=== PATIENT | female | born 1960 | race Caucasian/White ===

== ENCOUNTER 2018-10-08 10:52 | Emergency (ER) | payer BC ==
[2018-10-08 11:08] VITALS: BP 138/82
--- NOTE | 2018-10-08 11:31 | UC ---
Back Pain HPI - HPI Summary HPI Summary: caught herself off balance 4 eves ago, did not fall, started feeling low back pain few hours later. Has had low back pain in past and received steroid inj. takes tramadol qd and Lyrica, meloxicam, still has spasm. did get some relief while lying on heat pad pain does not radiate, no loss bowel/bladder control - History of Current Complaint Chief Complaint: UCBackPain Stated Complaint: BACK PAIN Time Seen by Provider: 10/08/18 11:18 Hx Obtained From: Patient Hx Last Menstrual Period: 10 years ago Onset/Duration: Gradual Onset Timing: Constant Severity Initially: Mild Severity Currently: Severe Pain Intensity: 9 Character: Aching, Throbbing, Stiffness Aggravating Factor(s): Movement, Bending Alleviating Factor(s): Rest, Heat Associated Signs And Symptoms: Negative: Weakness, Numbness, Tingling, Bladder Incontinence, Bowel Incontinence - Risk Factors Cauda Equina Risk Factors: Negative - Allergies/Home Medications Allergies/Adverse Reactions: Allergies Allergy/AdvReac Type Severity Reaction Status Date / Time latex Allergy Rash Verified 10/08/18 11:09 dextromethorphan AdvReac Tachycardia Verified 10/08/18 11:09 guaifenesin AdvReac Tachycardia Verified 10/08/18 11:09 Home Medications: Home Medications Cholecalciferol (Vitamin D3) [Vitamin D3] 1,000 unit PO DAILY 10/08/18 [History Confirmed 10/08/18] Exemestane(NF) [Aromasin(NF)] 25 mg PO DAILY 10/08/18 [History Confirmed ] PMH/Surg Hx/FS Hx/Imm Hx Previously Healthy: Yes Cancer History: Breast Cancer - Surgical History Surgical History: Yes Surgery Procedure, Year, and Place: APPENDECTOMY. tumor REMOVED FROM RIGHT BREAST - 2017. - Family History Known Family History: Positive: Hypertension - Social History Occupation: Employed Full-time - cleaning Lives: With Family Alcohol Use: Rare Substance Use Type: None Smoking Status (MU): Never Smoked Tobacco Review of Systems All Other Systems Reviewed And Are Negative: Yes Constitutional: Positive: Negative. Negative: Fever Skin: Positive: Negative. Negative: Rash Respiratory: Positive: Negative Cardiovascular: Positive: Negative Genitourinary: Positive: Negative Musculoskeletal: Positive: Decreased ROM - LS spine Neurological: Positive: Negative. Negative: Weakness, Paresthesia Psychological: Positive: Negative Is Patient Immunocompromised?: No Physical Exam Triage Information Reviewed: Yes Appearance: Well-Appearing, Well-Nourished Vital Signs: Initial Vital Signs Temp 98 F 10/08/18 11:03 Pulse 65 10/08/18 11:03 Resp 16 10/08/18 11:03 BP 138/82 10/08/18 11:03 Pulse Ox 99 10/08/18 11:03 Vital Signs Reviewed: Yes Respiratory Exam: Normal Cardiovascular Exam: Normal Musculoskeletal: Positive: Strength Limited @ - low back Neurological Exam: Normal Psychological Exam: Normal Skin Exam: Normal Back Pain Course/Dx - Differential Dx/Diagnosis Differential Diagnosis/HQI/PQRI: Cauda Equina Syndrome, Herniated Disc, Strain, Sprain Provider Diagnosis: Low back strain Discharge - Sign-Out/Discharge Documenting (check all that apply): Patient Departure All imaging exams completed and their final reports reviewed: No Studies - Discharge Plan Condition: Stable Disposition: HOME Prescriptions: Cyclobenzaprine TAB* [Flexeril 10 MG TAB*] 10 mg PO TID PRN #9 tab PRN Reason: back pain predniSONE TAB* [Deltasone 20 MG TAB*] 40 mg PO DAILY #3 tab Patient Education Materials: Low Back Strain (ED) Forms: *Work Release Referrals: Prabhu Parrish MD [Primary Care Provider] - 3 Days (if no better) Additional Instructions: apply heating pad to low back use muscle relaxer and prednisone as prescribed report to ER if pain or symptoms worsen - Billing Disposition and Condition Condition: STABLE Disposition: Home - Attestation Statements Provider Attestation: I was available for consult. This patient was seen by the JERMAIN. The patient was not presented to , seen by or examined by ms -Alek Ayala MD
== END 2018-10-08 11:50 | disposition home or self-care (01) ==
LOC: UCEAST 10:52
DX: S39.012A Strain of muscle, fascia and tendon of lower back, initial encounter (principal); Z91.040 Latex allergy status; Z88.8 Allergy status to other drugs, medicaments and biological substances; X58.XXXA Exposure to other specified factors, initial encounter; Y92.9 Unspecified place or not applicable
CPT/HCPCS: 99212; G0463

== ENCOUNTER 2018-11-30 13:42 | Emergency (ER) | payer BC ==
[2018-11-30 13:53] VITALS: BP 130/64
--- NOTE | 2018-11-30 13:58 | UC ---
Complaint Female HPI - HPI Summary HPI Summary: 58 yo female presents with LLQ pain for the last 4 days. She tells me that her pain began mildly 4 days ago, but since that time has become more painful. She has also had some instances of loose stools. She is eating and drinking well. Denies fever, chills, SOB, chest pain, n/v, vaginal bleeding. Hx of appendectomy , but no other abdominal surgeries. - History Of Current Complaint Chief Complaint: UCGU Stated Complaint: LOWER ABD/BACK PAIN Time Seen by Provider: 11/30/18 13:57 Hx Obtained From: Patient Hx Last Menstrual Period: 10 years ago Onset/Duration: Sudden Onset Timing: Constant Severity Initially: Mild Severity Currently: Mild Pain Intensity: 4 Pain Scale Used: 0-10 Numeric - Allergies/Home Medications Allergies/Adverse Reactions: Allergies Allergy/AdvReac Type Severity Reaction Status Date / Time latex Allergy Rash Verified 11/30/18 13:53 dextromethorphan AdvReac Tachycardia Verified 11/30/18 13:53 guaifenesin AdvReac Tachycardia Verified 11/30/18 13:53 PMH/Surg Hx/FS Hx/Imm Hx - Additional Past Medical History Additional PMH: BRCA Chronic pain - Surgical History Surgical History: Yes Surgery Procedure, Year, and Place: APPENDECTOMY. tumor and lymph nodes REMOVED FROM RIGHT BREAST - 2017. - Family History Known Family History: Positive: Hypertension - Social History Lives: With Family Alcohol Use: Rare Substance Use Type: None Smoking Status (MU): Never Smoked Tobacco Review of Systems All Other Systems Reviewed And Are Negative: Yes Constitutional: Positive: Negative Skin: Positive: Negative Respiratory: Positive: Negative Cardiovascular: Positive: Negative Gastrointestinal: Positive: Abdominal Pain Genitourinary: Positive: Negative Neurovascular: Positive: Negative Neurological: Positive: Negative Psychological: Positive: Negative Physical Exam - Summary Physical Exam Summary: GENERAL: NAD. WDWN. No pain distress. SKIN: No rashes, sores, lesions, or open wounds. NECK: Supple. Nontender. No lymphadenopathy. CHEST: CTAB. No r/r/w. No accessory muscle use. Breathing comfortably and in no distress. CV: RRR. Without m/r/g. Pulses intact. Cap refill <2seconds ABDOMEN: Mild TTP LLQ. Soft. No distention or guarding. No CVA tenderness. Bowel sounds present NEURO: Alert. PSYCH: Age appropriate behavior. Triage Information Reviewed: Yes Vital Signs: Initial Vital Signs Temp 97.5 F 11/30/18 13:49 Pulse 62 11/30/18 13:49 Resp 16 11/30/18 13:49 BP 130/64 11/30/18 13:49 Pulse Ox 100 11/30/18 13:49 Laboratory Tests 11/30/18 14:06 POC Urine Color Light yellow POC Urine Clarity Slightly cloudy POC Urine pH 7.0 POC Ur Specif [place] 1.010 POC Urine Protein Negative POC Ur Glucose (UA) Negative POC Urine Ketones Negative POC Urine Blood Negative POC Urine Nitrite Negative POC Urine Bilirubin Negative POC Urine Urobilinogen 0.2 POC U Leukocyte Esteras Negative Vital Signs Reviewed: Yes Complaint Female Dx - Course Course Of Treatment: CT: The colon demonstrates diverticulosis without definite evidence of diverticulitis. IMPRESSION: No abnormal masses or fluid collections are identified. No definite evidence of diverticulitis on CT, but diverticulosis was noted. Given her clinical exam and symptoms, will treat as if diverticulitis with Cipro and Flagyl. - Differential Dx/Diagnosis Provider Diagnosis: Diverticulitis Discharge - Sign-Out/Discharge Documenting (check all that apply): Patient Departure All imaging exams completed and their final reports reviewed: Yes - Discharge Plan Condition: Stable Disposition: HOME Prescriptions: Ciprofloxacin TAB* [Cipro 500 MG TAB*] 500 mg PO BID #14 tab metroNIDAZOLE [Flagyl 500 MG TAB] 500 mg PO TID #21 tab Patient Education Materials: Diverticulitis (ED), Diverticulosis (ED), Diverticulitis Diet (ED) Referrals: Prabhu Parrish MD [Primary Care Provider] - Additional Instructions: If you develop a fever, shortness of breath, chest pain, new or worsening symptoms - please call your PCP or go to the ED. - Billing Disposition and Condition Condition: STABLE Disposition: Home
== END 2018-11-30 15:00 | disposition home or self-care (01) ==
LOC: UCEAST 13:42
DX: K57.30 Diverticulosis of large intestine without perforation or abscess without bleeding (principal); G89.29 Other chronic pain; Z90.89 Acquired absence of other organs; Z88.8 Allergy status to other drugs, medicaments and biological substances; Z91.040 Latex allergy status
CPT/HCPCS: 74176; 81003; 99212; G0463

== ENCOUNTER 2021-01-27 10:24 | Observation (INO) ==
[~2021-01-27 10:24] MED LIST: Buffered Lidocaine 1% SYRIN 1 ml INTRADERM ONE; Lactated Ringers 1000 ml BAG 1,000 ML IV SCH
[2021-01-27] MEDS ORDERED: Phenylephrine IV 10 MG/ML 1 ml VIAL ONE (10:49)
[2021-01-27] MEDS ORDERED: fentaNYL 100 mcg/2 ml 50 MCG/ML VIAL ONE (10:49)
[2021-01-27] MEDS ORDERED: Midazolam 2 mg/2 ml VIAL 1 mg/ml 2 ml VIAL (2 mg) ONE ×2 (10:49→13:15)
[2021-01-27] MEDS ORDERED: ceFAZolin 2 GM PREMIX 2 GM/50 ML BAG ONE (10:56)
[2021-01-27] MEDS ORDERED: Buffered Lidocaine 1% SYRIN 1 ml INTRADERM ONE (10:56)
[2021-01-27] MEDS ORDERED: Lidocaine 2% PF 5 ML VIAL ONE (11:27)
[2021-01-27] MEDS ORDERED: Dexamethasone IV 4 MG/ML VIAL 1 ml VIAL ONE (11:46)
[2021-01-27] MEDS ORDERED: Bupivacaine 0.5% SDV PF 30ML VIAL ONE (11:46)
[2021-01-27] MEDS ORDERED: diPHENhydraMINE IV 50 MG/ML 1 ml VIAL (BENADRYL) IV PRN ×2 (14:06→16:22)
[2021-01-27] MEDS ORDERED: Lactulose 30 ml UDC PO PRN (14:06)
[2021-01-27] MEDS ORDERED: Magnesium Hydroxide LIQ 30 ML UDC PO PRN (14:06)
[2021-01-27] MEDS ORDERED: diPHENhydraMINE 25 mg TAB PO PRN (14:06)
[2021-01-27] MEDS ORDERED: Ondansetron 4 mg VIAL 2 MG/ML 2 ml VIAL IV PRN (14:06)
[2021-01-27] MEDS ORDERED: Morphine 2 MG/ML SYRINGE IV PRN (14:06)
[2021-01-27] MEDS ORDERED: Ondansetron ODT 4 mg TAB 4 MG TAB PO PRN (14:06)
[2021-01-27] MEDS ORDERED: Ondansetron 4 mg VIAL 2 MG/ML 2 ml VIAL ONE (14:23)
[2021-01-27] MEDS ORDERED: Propofol 10 MG/ML 20 ML BTL ONE ×2 (14:26→14:37)
[2021-01-27] MEDS ORDERED: Ropivacaine 5 MG/ML 20 ML VIAL 0.5% (100 MG) ONE (14:59)
[2021-01-27] MEDS ORDERED: DiMENhydriNATE IV 50 mg/ml 1 ml VIAL IV PUSH PRN (16:22)
[2021-01-27] MEDS ORDERED: Naloxone 0.4 mg VIAL 0.4 mg/ml 1 ml VIAL IV PRN (16:22)
[2021-01-27] MEDS ORDERED: fentaNYL 100 mcg/2 ml 50 MCG/ML VIAL IV PRN (16:22)
[2021-01-27] MEDS: Lactated Ringers 1000 ml BAG 1,000 ML IV SCH (17:47)
[2021-01-27] MEDS: Magnesium Hydroxide LIQ 30 ML UDC PO SCH (21:28)
[2021-01-27] MEDS: ceFAZolin 1 GM ADVAN 1 GM in NS 0.9% 50 ML 50 ML IVPB SCH (23:06)
[2021-01-28] MEDS: Lactated Ringers 1000 ml BAG 1,000 ML IV SCH (04:27)
[2021-01-28] MEDS: ceFAZolin 1 GM ADVAN 1 GM in NS 0.9% 50 ML 50 ML IVPB SCH ×2 (06:23→13:45)
[2021-01-28 06:27] LABS: Hematocrit 34 % (35-47); Platelet Count 284 10^3/uL (150-450)
[2021-01-28 06:41] LABS: Calcium 9.1 mg/dL (8.6-10.3); EGFR African American 83.1 (>60); EGFR Non-African American 68.7 (>60); Potassium 4.7 mmol/L (3.5-5.0)
[2021-01-28] MEDS: Magnesium Hydroxide LIQ 30 ML UDC PO SCH (08:38)
[2021-01-28] MEDS ORDERED: Vitamin THERAPEUTIC TAB PO SCH (09:00)
[2021-01-28] MEDS ORDERED: EXEMESTANE 25 MG PO SCH (09:00)
[2021-01-28 11:26] VITALS: BP 157/80
== END 2021-01-28 15:00 | disposition home or self-care (01) ==
LOC: OR 10:24 → SSU 10:24 → EDSTATUS 13:30
PROVIDERS: ADMIT Orthopaedic Surgery Adult Reconstructive Orthopaedic Surgery; ATTEND Orthopaedic Surgery Adult Reconstructive Orthopaedic Surgery